=== PATIENT | female | born 1990 | race Caucasian/White ===

== ENCOUNTER → 2019-07-08 09:07 | Outpatient (BNVA) | payer SELFPAY | PROVIDERS: PCP Emergency Medicine; Visit Provider Emergency Medicine | DX: R68.89 Other general symptoms and signs (principal) | CPT/HCPCS: 87804 ==

== ENCOUNTER 2019-10-10 19:20 | Outpatient (CLI) | payer SELFPAY ==
[2019-10-10] VITALS (11 sets, daily range): BP systolic 0–125; BP diastolic 0–73; PULSE 53–81; RESP 14–16; TEMP 36.8; BMI 24.1
[2019-10-10 20:11] LABS: Nitrazine Paper, PH Inconclusive
[2019-10-10 20:41] LABS: Actim Prom Negative
== END 2019-10-10 20:55 | disposition home or self-care (01) ==
LOC: OPOB 19:29 → OBGYN 20:47
PROVIDERS: PCP Emergency Medicine; Visit Provider Family Medicine
DX: O26.899 Other specified pregnancy related conditions, unspecified trimester (principal); Z3A.00 Weeks of gestation of pregnancy not specified; N89.8 Other specified noninflammatory disorders of vagina
CPT/HCPCS: 59025; 83986; 84112; 99211

== ENCOUNTER 2019-10-16 11:13 | Inpatient (IN) | payer SELFPAY ==
[2019-10-16] VITALS (121 sets, daily range): BP systolic 0–125; BP diastolic 0–84; PULSE 26–86; RESP 15–17; TEMP 36.8–37.1; O2SAT 89–100; BMI 24.9
[2019-10-16] MEDS: oxytocin 30 UNIT/500 ML BAG IV (12:00)
[2019-10-16] MEDS: dextrose 5%-lactated ringers 1,000 ML 125 ML IV (12:06)
[2019-10-16 12:33] LABS: Basophils % 0.2 %; Eosinophils % 0.4 %; Hematocrit 32.5 % (37.0-47.0); Hemoglobin 10.6 g/dL (11.5-15.3); Lymphocytes # 1.1 10^3/uL (0.8-4.8); Lymphocytes % 25.2 %; Mean Corpuscular HGB Conc 32.6 g/dL (30.0-36.0); Mean Corpuscular Hemoglobin 31.2 pg (28.0-34.0); Mean Corpuscular Volume 95.6 fL (81-99); Mean Platelet Volume 11.4 fL (7.4-10.4); Monocytes # 0.3 10^3/uL (0.2-0.9); Monocytes % 5.6 %; Neutrophils % 68.4 %; Nucleated Red Blood Cells % 0 %; Platelet Count 140 10^3/cmm (130-400); Red Cell Distribution Width 12.9 % (12.1-15.1); White Blood Count 4.5 10^3/uL (4.0-10.0)
--- NOTE | 2019-10-16 12:39 | PC.NURSE ---
Bedside ultrasound performed to confirm position. position vertex per manual writer and Pepper Canas RN Dr. Desir notified.
[2019-10-16] MEDS: lactated ringers 1,000 ML 999 ML IV ×2 (13:20→14:47)
[2019-10-16] MEDS: lactated ringers 500 ML IV (16:51)
--- NOTE | 2019-10-16 17:30 | PC.NURSE ---
First epidural did not provide pain relief so patient was set up and given a second epidural Test dose at 1631 caused patient to have an increased heart rate and patient stated she felt like her heart was racing. Dr. Murray adjusted catheter and repeated dose at 1633 and patient had no side effects. Patient was reattached to the pump at 1640.
[2019-10-17] VITALS (31 sets, daily range): BP systolic 0–116; BP diastolic 0–71; PULSE 40–100; RESP 15–18; TEMP 36.6–36.9; O2SAT 99
--- NOTE | 2019-10-17 01:21 | P.PCNOB_ITS ---
Delivery Note: Date of delivery: October 17, 2019 Pre-delivery diagnoses: IUP at 38 weeks 2 days gestation Spontaneous rupture of membranes with thin meconium Post-delivery diagnoses: IUP at 38 weeks 2 days gestation delivered Status post normal spontaneous vaginal delivery Procedure: Normal spontaneous vaginal delivery Op report anesthesia: Epidural Estimated blood loss (mL): 150 Pre-Delivery Course: This is a 29-year-old G3, P2 who presented at 38 weeks 2 days gestation with spontaneous rupture of membranes. She states she felt a gush of fluid at approximately 7:00 in the morning on 10/16/2019. She presented to labor and delivery a couple hours later and cervical exam revealed she was fingertip thick and high. She was arvind regularly but not feeling them. She was started on Pitocin and received an epidural for pain management. The patient had routine care at [facility]. There were no complications during the . Delivery: She had a normal spontaneous vaginal delivery of a viable male infant weight 3140 g, 6 pounds 15 ounces over an intact perineum. The was suctioned at delivery and placed on the mother's chest. The cord was clamped and cut. The placenta was delivered grossly intact and normal to inspection although lightly meconium stained. There was a very small second- degree perineal laceration that was sutured using 3-0 chromic. Mother and were doing well after delivery Coding Level of Care Code Acute Shotgun Shell Loading Machine Operator for Aggie Jones
[2019-10-17] MEDS: prenatal vitamin Capsule 1 CAP PO (09:16)
[2019-10-17] MEDS: docusate sodium 100 mg Capsule PO ×2 (09:16→18:34)
[2019-10-17 16:20] LABS: Hemoglobin 10.2 g/dL (11.5-15.3); Mean Corpuscular HGB Conc 32.9 g/dL (30.0-36.0); Mean Corpuscular Hemoglobin 30.7 pg (28.0-34.0); Mean Corpuscular Volume 93.4 fL (81-99); Mean Platelet Volume 11.1 fL (7.4-10.4); Platelet Count 133 10^3/cmm (130-400); Red Blood Count 3.32 10^6/uL (4.1-5.3); Red Cell Distribution Width 12.9 % (12.1-15.1); White Blood Count 5.5 10^3/uL (4.0-10.0)
[2019-10-18 04:00] VITALS: BP 93/59; PULSE 41; RESP 16; TEMP 36.7; O2SAT 96
[2019-10-18] MEDS: docusate sodium 100 mg Capsule PO (08:55)
[2019-10-18] MEDS: prenatal vitamin Capsule 1 CAP PO (08:55)
[2019-10-18 08:57] VITALS: BP 111/65; PULSE 53; RESP 16; O2SAT 97
--- NOTE | 2019-10-18 12:31 | PM.OBGYDC ---
Discharge Providers REFRIGERATION SERVICE TECHNICIAN Date of Admission: 10/16/19 11:13 Date of Discharge: 10/18/19 Attending Provider at Admission: Petty Desir MD Attending Provider at Discharge: Petty Desir MD Primary Care Provider: NEELA Conroy Diagnoses at Discharge Discharge Diagnosis (1) Normal spontaneous vaginal delivery: Status: Acute Reason for Visit Reason for Visit: Reason For Visit: LEAKING FLUID Hospital Course Hospital Course: This is a 29 y/0 G3 now P3 who was admittted with [facility]. She required pitocin induction for onset of contractions and had a of a viable male . Mother and did well after delivery. She had decreased vaginal bleeding, normal cramping with and was comfortable with d/c home on PPD#1. Information Peripartum Data: Infant Delivery Method: Vaginal Physical Exam HENMT: COMMON NORMALS: normocephalic HEAD & SCALP: normocephalic FACE & SINUS: normal facial exam Eye: COMMON NORMALS: PERRL and EOMs intact bilaterally PUPIL: Yes PERRL Chest: COMMONS NORMALS: inspection of chest normal Resp: COMMON NORMALS: normal respiratory effort and clear to auscultation bilaterally; negative for no use of accessory muscles AUSCULTATION: clear to auscultation bilaterally Cardio: COMMON NORMALS: regular rate, regular rhythm and no murmurs RATE: regular rate RHYTHM: regular rhythm : UTERUS PALPATION: No uterus tender (firm U-3) Extremity: GENERAL: No calf tenderness and No edema Psych: COMMON NORMALS: mental status grossly normal and thought process normal THOUGHT PROCESS: normal thought process Urinary Catheter Management^: Alexander: Cath Placed During This Visit: yes Urinary Catheter Date of Insertion: 10/16/19 Urinary Catheter Time of Insertion: 17:15 Discharge Data Data Completed and Pending: Labs from last 24 hours 10/17/19 16:10 WBC 5.5 RBC 3.32 L Hgb 10.2 L Hct 31.0 L MCV 93.4 MCH 30.7 MCHC 32.9 RDW 12.9 Plt Count 133 MPV 11.1 H Vitals: Last Vital Signs Temp 98.0 F 10/18/19 04:00 Pulse 53 L 10/18/19 08:57 Resp 16 10/18/19 08:57 BP 111/65 10/18/19 08:57 Pulse Ox 97 10/18/19 08:57 Discharge Plan Discharge Patient Disposition: Home, Self-Care Condition: Stable Discharge Orders: Discharge Order (Routine); Ordered 10/18/19 Ordered By: Petty Desir Referrals: Petty Desir MD [Physician] - 1 month Discharge Diet: Usual diet Discharge Activity: Limit activity as instructed Discharge Attestations REFRIGERATION SERVICE TECHNICIAN Time Spent in Discharge Care*: less than 30 min Coding Level of Care Code Acute Gas Pipe Layer for Chg Fwd Diagnoses Normal spontaneous vaginal delivery O80
[2019-10-18 14:00] VITALS: BP 103/65; PULSE 57; RESP 16; TEMP 36.7; O2SAT 98
[2019-10-18 14:05] VITALS: BP 103/65; PULSE 57; RESP 16; TEMP 36.7; O2SAT 98
== END 2019-10-18 14:05 | disposition home or self-care (01) | DRG 807 ==
LOC: OPOB 11:22 → OBGYN 11:23 → OPOB 11:58
PROVIDERS: Admitting Provider Family Medicine; PCP Emergency Medicine; Visit Provider Family Medicine
DX: O77.0 Labor and delivery complicated by meconium in amniotic fluid (principal); Z37.0 Single live birth; Z3A.38 38 weeks gestation of pregnancy; O70.1 Second degree perineal laceration during delivery
CPT/HCPCS: 12345; 36415; 51702; 59409; 83986; 85025; 85027; J2795

== ENCOUNTER 2023-08-01 10:45 | Outpatient (CLI) | payer SELFPAY ==
[2023-08-01 10:45] VITALS: RESP 17; BMI 25.2
[2023-08-01 10:55] VITALS: BP 95/57; PULSE 82; RESP 17
[2023-08-01 11:10] VITALS: BP 91/55; PULSE 47
--- NOTE | 2023-08-01 11:13 | PC.NURSE ---
pt reports having low pulse due to being very active, reports is aware
== END 2023-08-01 11:19 | disposition home or self-care (01) ==
LOC: OPOB 10:50 → OBGYN 10:51
PROVIDERS: PCP Emergency Medicine; Visit Provider Family Medicine
DX: O09.519 Supervision of elderly primigravida, unspecified trimester (principal); Z3A.00 Weeks of gestation of pregnancy not specified
CPT/HCPCS: 59025

== ENCOUNTER 2023-08-11 22:49 | Inpatient (IN) | payer SELFPAY ==
[2023-08-11 21:30] VITALS: BMI 25.0
[2023-08-11 21:46] VITALS: BP 102/65; PULSE 53
[2023-08-11 22:01] VITALS: BP 110/59; PULSE 50
[2023-08-11 22:54] VITALS: BP 116/72; PULSE 50
[2023-08-11 23:10] VITALS: BP 120/57; PULSE 60
[2023-08-11] MEDS: lactated ringers 1,000 ML 999 ML IV (23:35)
[2023-08-11 23:44] VITALS: BP 121/57; PULSE 44
[2023-08-11 23:46] LABS: Basophils % 0.5 %; Eosinophils # 0.1 10^3/uL (0.0-0.8); Eosinophils % 1.6 %; Hematocrit 35.5 % (36-47); Lymphocytes # 1.6 10^3/uL (0.8-4.8); Lymphocytes % 26.9 %; Mean Corpuscular HGB Conc 34.6 g/dL (30-55); Mean Corpuscular Hemoglobin 32.4 pg (27-33); Mean Corpuscular Volume 93.4 fl (85-98); Mean Platelet Volume 11.3 fL (7.4-10.4); Monocytes # 0.5 10^3/uL (0.2-0.9); Monocytes % 7.8 %; Neutrophils # 3.62 10^3/uL (1.8-7.7); Neutrophils % 62.9 %; Nucleated Red Blood Cells % 0 %; Platelet Count 137 10^3/cmm (157-399); Red Cell Distribution Width 13.2 % (12.1-15.1); White Blood Count 5.76 10^3/uL (3.29-11.43)
[2023-08-11 23:56] VITALS: BP 119/67; PULSE 42
[2023-08-12] VITALS (127 sets, daily range): BP systolic 92–157; BP diastolic 50–122; PULSE 43–114; RESP 16–17; TEMP 36.4–36.6; O2SAT 87–100
[2023-08-12] MEDS: dextrose 5%-lactated ringers 1,000 ML 125 ML IV ×2 (00:38→08:31)
[2023-08-12] MEDS: ROPivacaine syringe 100 MG/50 ML SYRINGE 10 MG EPIDURAL ×2 (01:05→04:49)
--- NOTE | 2023-08-12 01:09 | ANES.PREANE2 ---
Pre-Anesthetic Assessment Height/Weight: Height 1.7 m Weight 72.575 kg Pulse BP Pulse Ox 68 114/55 96 08/12/23 01:05 08/12/23 01:05 08/12/23 01:05 Preop Diagnosis: IUP Labor epidural Familial anesthetic complications: None Was [employer] taken within 24 hours: N/A Was Clonidine taken within 24 hours: N/A Last intake: 1700 Social No alcohol and No tobacco Exam alert, oriented x 3, clear to auscultation bilaterally and regular rate & rhythm Airway Submandibular: within normal limits Mallampati: Class I Dentition: full History/ROS No significant history except as noted Pulmonary None reported CV/HEM None reported None reported Hepatic None reported GI None reported Metabolic None reported Musc/skel 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 for regional block and Regional (specify below) Risk of > 500 ml blood loss (7ml/kg in children): Yes, adequate IV access and fluids planned Medications/Allergies Home Medications Medication Instructions Recorded Confirmed Last Taken Type no.58-iron bisglycinate cap PO 08/01/23 08/01/23 10:30 History 10 mg iron-folic acid 400 mcg capsule Allergies Allergy/AdvReac Type Severity Reaction Status Date / Time No Known Allergies Allergy Verified 08/01/23 11:27 Current Medications Generic Name Dose Route Start Last Admin Trade Name Freq PRN Reason Stop Dose Admin Lactated Ringer's 1,000 mls @ 999 mls/hr 08/11/23 23:07 08/11/23 23:35 Lactated Ringers IV 999 mls/hr .Q1H1M PRN Administration See label comments Dextrose/Lactated Ringer's 1,000 mls @ 125 mls/hr 08/11/23 23:15 08/12/23 00:38 Dextrose 5%-Lactated Ringers IV 125 mls/hr .Q8H MYRNA Administration PFSH Anesthesia Family History (Updated 10/16/19 @ 12:38 by Jesse Jacinto RN) Grandfather Hypertension Social History (Updated 07/08/19 @ 09:45 by Alida Milton LPN) Smoking and tobacco/nicotine status: never used tobacco/nicotine Second hand smoke exposure: No Alcohol intake: never Substance/Drug Use: never Adopted: No Caregiver/support person: Yes Lives independently: No Household members: spouse, family and children Housing: House Marital status: Number of children: 2 service: No Current occupational exposures/hazards: No Sexually active: Yes Do you think of yourself as: Straight/Heterosexual Current gender identity: Female Female Reproductive History : 4 Data Anesthesia 08/11/23 23:30 Short CBC 08/11/23 Range/Units 23:30 WBC 5.76 (3.29-11.43) 10^3/uL Hgb 12.30 (11.27-16.99) g/dL Hct 35.5 L (36-47) % MCV 93.4 (85-98) fl Plt Count 137 L (157-399) 10^3/cmm Neut % (Auto) 62.9 % Neut # (Auto) 3.62 (1.8-7.7) 10^3/uL Blood Bank 08/11/23 22:30 Blood Type A Positive Rho(D) Type Rh positive Cardiac Studies: No Data to Display Anesthesia Procedures Epidural Time Out Performed: Yes Consents Signed: Procedure Consent Consent: requested by attending/covering physician, from patient, risks and benefits reviewed and patient agrees to proceed Lumbar Level: L4-L5 Epidural position: sitting Epidural procedure: sterile prep of area, 1% lidocaine to numb the area, 18 g needle, negative for paresthesia passed, neg for paresthesia, test dose given, 1.5% xylocaine 1:200k epi, 0.2% Ropivacaine bolus ml (5), placed PCEA, no systemic response, sterile dressing applied, L.U.D. no apparent complications and 0.2% Ropiavacaine @ mls/hr (10) Additional Comments: GRACIE 4cm, catheter easily threaded to 5cm in the space. Pt educated on SHORE HAND DREDGE OR BARGE and reporting no pain with contractions
--- NOTE | 2023-08-12 02:36 | ANES.PROC ---
Anesthesia Procedures Procedure/Date: 08/12/23 labor epidural Procedure Narrative: Called back to OB 3, pt stating pain is 8/10 with contractions with no relief from epidural. All options discussed with patients. She would like to remove epidural and place a new one. Epidural: Time Out Performed: Yes Consents Signed: Procedure Consent Consent: requested by attending/covering physician, from patient, risks and benefits reviewed and patient agrees to proceed Lumbar Level: L3-L4 Epidural position: sitting Epidural procedure: sterile prep of area, 1% lidocaine to numb the area, 18 g needle, negative for paresthesia passed, neg for paresthesia, test dose given, 1.5% xylocaine 1:200k epi, 0.2% Ropivacaine bolus ml, placed PCEA, no systemic response, sterile dressing applied, L.U.D. no apparent complications and 0.2% Ropiavacaine @ mls/hr (10) Additional Comments: GRACIE 4.5 cm, catheter easily threaded to 5cm in the space, pt educated on TRAVELING PASSENGER AGENT.
--- NOTE | 2023-08-12 03:46 | ANES.PROC ---
Anesthesia Procedures Procedure/Date: 08/12/23 labor epidural Procedure Narrative: pt again stating, no relief from contractions with epidural- Dr Fan at bedside. All options discussed with patient and she would like to remove epidural and attempt another epidural placement. Epidura removed by Dr Fan.
--- NOTE | 2023-08-12 05:05 | PC.NURSE ---
This RN called anesthesia for an epidural placement request made by patient. Four attempts were made and the fourth was successful in relieving patient of painful contractions. The four attempts went as follows: Attempt one- Vicki Chase CRNA RN, patient on side of bed anesthesia called: 0007 anesthesia in room: 0032 time out time: 0037 procedure start: 0044 test dose given: 0057 pump started and runnin patient stated she was having no relief with contractions Attempt two-Vicki Chase CRNA RN, patient on side of bed anesthesia called: 0147 anesthesia in room: 0210 time out time: 0212 procedure start: 0219 test dose given: 0222 pump started and runnin patient stated she was having no relief with contractions Attempt three-Dr. Dumont, Vicki Chase CRNA RN, patient on side of bed anesthesia called: More Gupta called Dr. Dumont at approximately 0245 anesthesia in room: 0300 time out time: 0305 procedure start: 0308 test dose given: 0315 pump started and running: pump was not started on this attempt after the test dose of this attempt, patient stated that she felt like she needed to lay down and felt faint, patient was laid down and monitored. Dr. Dumont made the decision to attempt the next epidural with patient in lateral position and that the third attempt had not been placed in the correct spot Attempt four-Dr. Dumont, Vicki Chase CRNA RN, patient in left lateral position anesthesia called: both anesthesia providers and this RN still in room after 3rd attempt anesthesia in room:both anesthesia providers and this RN still in room after 3rd attempt time out time: 032 procedure start: 032 test dose given: 0335 pump started and runnin
--- NOTE | 2023-08-12 08:10 | ANES.PROC ---
Anesthesia Procedures Procedure/Date: epidural replacement at 0350 this morning Procedure Narrative: Patient had previous epidural placement by More PERALES without success. I spoke with patient and offerred her replacement which she requested. First pass while sitting with GRACIE with 17g tuouy needle. Catheter threaded but positive test dose and patient placed LLD and catheter removed. Second pass with new kit and GRACIE. Catheter threaded again with negative test dose and taped to back. Bolus of 10 ml given through pump. Patient tolerated procedure well. Epidural: Time Out Performed: Yes Consents Signed: Procedure Consent Consent: from patient Lumbar Level: L3-L4 Epidural position: laying on side Epidural procedure: sterile prep of area, 1% lidocaine to numb the area, negative for paresthesia passed and test dose given Additional Comments: see above
[2023-08-12] MEDS: oxytocin 30 UNIT/500 ML BAG 600 UNIT IV (09:38)
[2023-08-12] MEDS: benzocaine-menthol 78 gm Canister 1 SPRAY TOPICAL (15:03)
[2023-08-13 00:31] LABS: Hematocrit 31.4 % (36-47); Mean Corpuscular Hemoglobin 32.7 pg (27-33); Mean Corpuscular Volume 93.5 fl (85-98); Platelet Count 107 10^3/cmm (157-399); Red Blood Count 3.36 10^6/uL (3.85-5.65); Red Cell Distribution Width 13.2 % (12.1-15.1); White Blood Count 5.78 10^3/uL (3.29-11.43)
[2023-08-13 06:06] VITALS: BP 106/63; PULSE 44; RESP 16; TEMP 36.6; O2SAT 98
[2023-08-13 09:35] VITALS: BP 111/47; PULSE 59; TEMP 36.8; O2SAT 98
--- NOTE | 2023-08-13 12:00 | PM.OPHPUD ---
Labor & Delivery H&P Update Date of Procedure: August 12, 2023 Date H&P Performed: 08/06/23 Admission Diagnosis: IUP at 40 weeks 2 days gestation in active labor Preop diagnosis: IUP Planned procedure: Expectant management of labor and delivery
--- NOTE | 2023-08-13 12:01 | P.PCNOB_ITS ---
Delivery Note: Date of delivery: August 12, 2023 Pre-Delivery Course: The patient had routine care at [facility]. The was complicated by advanced maternal age. Blood type A+ antibody negative, hepatitis B nonreactive, hepatitis C nonreactive, HIV nonreactive, RPR nonreactive, GC chlamydia negative, she passed her glucose tolerance test, she was GBS negative. Delivery: This is a 33-year-old at 40 weeks 2 days gestation who presented to labor and delivery in active labor. Unfortunately it took about 4 tries for her to finally get a working epidural for pain management. When she was complete complete artificial rupture of membranes was performed with clear fluid. Less than an hour later she had a normal spontaneous vaginal delivery of a viable male infant weight 7 pounds 3 ounces, Apgars 8 and 9 over an intact perineum. The infant was suctioned at delivery and placed on the mother's chest. The cord was clamped and cut. The placenta was delivered grossly intact and normal to inspection. There was a first-degree perineal laceration that was sutured using 3-0 chromic. Mother and infant were doing well after delivery. Estimated blood loss 100 mL A&P Assessment and plan (1) Normal spontaneous vaginal delivery: Routine care Coding Level of Care Code Acute Code for Chg Fwd Diagnoses Normal spontaneous vaginal delivery O80
--- NOTE | 2023-08-13 12:11 | PM.DCS ---
Discharge Providers Date of Admission: 08/11/23 22:49 Date of Discharge: August 13, 2023 Attending Provider at Admission: Petty Desir MD Attending Provider at Discharge: Petty Desir MD Primary Care Provider: NEELA Conroy Diagnoses at Discharge Discharge Diagnosis (1) Normal spontaneous vaginal delivery: Status: Acute Reason for Visit Reason for Visit: contractions Hospital Course Hospital Course This is a 33-year-old G4 now P4 who had a normal spontaneous vaginal delivery of a viable male infant. Mother has done well . She is ambulating, tolerating a regular diet, has decreased vaginal bleeding and is comfortable with discharge home. Physical Exam Narrative: Alert and oriented, walking around the room, heart regular rate and rhythm, lungs clear to auscultation bilaterally, abdomen soft and nontender, fundus firm, extremities have no calf tenderness and no edema Urinary Catheter Management: Alexander Latex: Cath Placed During This Visit: yes, but has since been removed by the nurse Reason for Continuing Indwelling Catheter: Decision to DC Catheter Urinary Catheter Date of Insertion: 08/12/23 Urinary Catheter Time of Insertion: 02:45 Date Urinary Catheter Removed: 08/12/23 Time Urinary Catheter Discontinued: 09:24 Discharge Data Studies Completed and Pending Laboratory Results WBC 5.78 10^3/uL (3.29-11.43) 08/13/23 00:17 RBC 3.36 10^6/uL (3.85-5.65) L 08/13/23 00:17 Hgb 11.00 g/dL (11.27-16.99) L 08/13/23 00:17 Hct 31.4 % (36-47) L 08/13/23 00:17 MCV 93.5 fl (85-98) 08/13/23 00:17 MCH 32.7 pg (27-33) 08/13/23 00:17 MCHC 35.0 g/dL (30-55) 08/13/23 00:17 RDW 13.2 % (12.1-15.1) 08/13/23 00:17 Plt Count 107 10^3/cmm (157-399) L 08/13/23 00:17 MPV 11.0 fL (7.4-10.4) H 08/13/23 00:17 Neut % (Auto) 62.9 % 08/11/23 23:30 Lymph % (Auto) 26.9 % 08/11/23 23:30 [place] % (Auto) 7.8 % 08/11/23 23:30 Eos % (Auto) 1.6 % 08/11/23 23:30 Baso % (Auto) 0.5 % 08/11/23 23:30 Neut # (Auto) 3.62 10^3/uL (1.8-7.7) 08/11/23 23:30 Lymph # (Auto) 1.6 10^3/uL (0.8-4.8) 08/11/23 23:30 [place] # (Auto) 0.5 10^3/uL (0.2-0.9) 08/11/23 23:30 Eos # (Auto) 0.1 10^3/uL (0.0-0.8) 08/11/23 23:30 Baso # (Auto) 0.0 10^3/uL (0.0-0.1) 08/11/23 23:30 Nucleated RBC % (auto) 0 % 08/11/23 23:30 Nucleated RBCs # 0.0 /100WBC 08/11/23 23:30 Blood Type A Positive 08/11/23 22:30 Rho(D) Type Rh positive 08/11/23 22:30 Antibody Screen Negative 08/11/23 22:30 Vitals Last Vital Signs Temp 98.2 F 08/13/23 09:35 Pulse 59 L 08/13/23 09:35 Resp 16 08/13/23 06:06 BP 111/47 08/13/23 09:35 Pulse Ox 98 08/13/23 09:35 O2 Del Method Room Air 08/13/23 09:35 Discharge Plan Discharge Patient Disposition: Home Condition: Stable Prescriptions: No Action 10-400 mg-mcg Capsule PO Discharge Orders: Discharge Order (Routine); Ordered 08/13/23 Ordered By: Petty Desir Referrals: Petty Desir MD [Physician] - 09/03/23 1:00 pm (Your appointment with Dr. Desir is 09/03/23 @ 1:00pm. ) Discharge Diet: Usual diet Patient Instructions: Depression (DC), Bleeding (GEN), Preeclampsia and Eclampsia After Delivery (GEN), Hemorrhage (DC), OB Discharge Report, OB Food/Drug Interaction Guide, OB Care at Home, Opioid Safety, OB Home Care Discharge Attestations Time Spent in Discharge Care*: less than 30 min Quality Metrics Clinical Quality Measures [ No reported AMI, CVA or VTE this stay] Coding Level of Care Code Acute Code for Chg Fwd Diagnoses Normal spontaneous vaginal delivery O80
[2023-08-13 14:15] VITALS: BP 116/58; PULSE 58; TEMP 36.8; O2SAT 98
--- NOTE | 2023-08-17 07:33 | ANE.PACU2 ---
Inpatient post-anesthesia follow up: Airway intact: Yes Vital signs: Temperature 98.2 F Pulse Rate 58 Respiratory Rate 16 Blood Pressure 116/58 Pulse Oximetry 98 Oxygen Delivery Me thod Room Air Oxygen Flow Rate Fraction of Inspir ed Oxygen Hydration adequate: Yes Nausea and vomiting: No Pain level: 2 Mental status: Baseline Epidural Start/End: Epidural Start Date: 08/12/23 Epidural Start Time: 00:35 Epidural End Date: 08/13/23 Epidural End Time: 12:01
== END 2023-08-13 14:30 | disposition home or self-care (01) | DRG 807 ==
LOC: OPOB 22:50 → OBGYN 22:50
PROVIDERS: Admitting Provider Family Medicine; PCP Emergency Medicine; Visit Provider Family Medicine
DX: O48.0 Post-term pregnancy (principal); Z37.0 Single live birth; Z3A.40 40 weeks gestation of pregnancy; O70.0 First degree perineal laceration during delivery
CPT/HCPCS: 36415; 51702; 59025; 59409; 85025; 85027; 86850; 86900; 99211; J2590; J2795; J7120; J7121